=== PATIENT | female | born 1985 | race African-American/Black ===

== ENCOUNTER 2016-09-05 23:42 | Emergency (ER) | payer OTHER ==
[~2016-09-05] VITALS: Ht 177.8 cm; Wt 95.0 kg
[2016-09-05 23:50] VITALS: Ht 177.8 cm; Wt 95.0 kg
--- NOTE | 2016-09-06 00:55 | ERA ---
ER Documentation Chief Complaint Date/Time DATE: 09/06/16 TIME: 00:53 Chief Complaint LAPTOP FELL ON RT FOOT. SWOLLEN AND PAINFUL NOW HPI This is a 31-year-old female presenting with a chief complaint of right foot pain 1-2 hour status post trauma. Patient dropped a MacBook laptop on the top of her right foot. Patient denies any numbness, tingling, loss of sensation, loss of motion, recent illness, fever. Patient has no other complaints and describes no other associated manifestations. Has taken ibuprofen with minimal relief. ROS All systems reviewed and are negative except as per history of present illness. Medications Home Meds Active Scripts Ibuprofen* (Motrin*) 400 Mg Tab, 400 MG PO Q6, #30 TAB Prov:BARRY AL PA-C 09/06/16 Allergies Allergies: Coded Allergies: No Known Allergy (Unverified , 09/06/16) PMhx/Soc Medical and Surgical Hx: pt denies Surgical Hx History of Surgery: No Anesthesia Reaction: No Hx Neurological Disorder: No Hx Respiratory Disorders: Yes (bronchial spasms) Hx Cardiac Disorders: No Hx Psychiatric Problems: No Hx Miscellaneous Medical Probl: No Hx Alcohol Use: No Hx Substance Use: No Hx Tobacco Use: No Smoking Status: Never smoker Physical Exam Vitals Vital Signs Date Time Temp Pulse Resp B/P Pulse Ox O2 Delivery O2 Flow Rate FiO2 09/05/16 23:50 98.7 82 18 125/68 99 Physical Exam Const: Well-appearing 31-year-old female sitting in the bed on initial presentation Head: Atraumatic Eyes: Normal Conjunctiva ENT: Normal External Ears, Nose and Mouth. Neck: Full range of motion..~ No meningismus. Resp: Clear to auscultation bilaterally Cardio: Regular rate and rhythm, no murmurs Abd: Soft, non tender, non distended. Normal bowel sounds Skin: As noted in extremity examination. No petechiae or rashes Back: No midline or flank tenderness Ext: Mild hematoma overlying the second and third metatarsals of the right foot. Tenderness to palpation over the affected area. No cyanosis, or edema. Full range of motion of the toes. Full range of motion of the knees. Neur: Awake and alert Psych: Normal Mood and Affect Results 24 hrs Current Medications Medications (Trade) Dose Ordered Sig/John Route PRN Reason Start Time Stop Time Status Last Admin Dose Admin Acetaminophen/ Hydrocodone Bitart ([place] (5/325)) 1 tab ONCE ONCE PO 09/06/16 01:00 09/06/16 01:01 DC 09/06/16 01:02 Procedures/MDM 31-year-old female with a chief complaint of foot pain 2-3 hours status post MacBook versus top of the foot. 1 07/06 [place] p.o. was given in the ED with adequate relief of symptoms. An x-ray was taken and read by the radiologist given the following impression: No acute fracture. At this time a very low suspicion for bony involvement or neurovascular compromise. Outpatient management will include Rice therapy which has been discussed with the patient as well as ibuprofen for pain management. Patient does not need assistive device at this time. Patient will be discharged with discharge instructions and return precautions. I have spoke with the patient regarding their condition and future management. They have verbally responded that they understand their status and treatment plan. The patients vitals are stable, and their current condition is appropriate for discharge. The patient will be given discharge instructions with return precautions. Departure Diagnosis: Primary Impression: Injury of foot Qualified Code: S99.921A - Injury of foot, right, initial encounter Additional Impression: Foot pain Qualified Code: M79.671 - Right foot pain Condition: Stable Additional Instructions: Follow up with your PCP within the next 1-3 days for a more thorough evaluation and a possible referral to a specialist. Return the the emergency department immediately if symptoms worsen or change. If you have any questions regarding medications, ask your pharmacist or us before you leave. If any adverse reactions occur while taking your medications, discontinue the treatment and return to the emergency department immediately. Take your medications as directed, and complete the entire course of treatment. BARRY AL PA-C Sep 06, 2016 00:55
[2016-09-06] MEDS ORDERED: HYDROCODONE/APAP (5/325) TAB PO ONE (01:00)
--- NOTE | 2016-09-06 01:16 | RADRPT ---
PROCEDURE: X-ray right foot CLINICAL INDICATION: Right foot trauma with reference markers directed towards the dorsum of the f orefoot and to the bilateral forefoot. Pain in the second through fifth metatarsal regions. TECHNIQUE: 3 views right foot COMPARISON: None FINDINGS: No acute fracture or dislocation. Mild soft tissue swelling over the dorsum of the foot. Soft tiss ues unremarkable. IMPRESSION: No acute fracture. RPTAT: [facility] Physician Syeda Date Time Electronically viewed and signed by Darren Mary Physician on 09/06/2016 01:16 RS/
[2016-09-06] MEDS ORDERED: IBUP400T22 PO (01:21)
== END 2016-09-06 01:29 | disposition home or self-care (01) ==
LOC: FTE 23:42
DX: S90.31XA Contusion of right foot, initial encounter (principal); W20.8XXA Other cause of strike by thrown, projected or falling object, initial encounter; Y92.9 Unspecified place or not applicable
CPT/HCPCS: 73630; Z7610

== ENCOUNTER 2016-11-09 21:08 | Emergency (ER) | payer OTHER ==
[~2016-11-09] VITALS: Ht 167.6 cm; Wt 89.0 kg
[~2016-11-09 21:08] MED LIST: IBUP400T22 PO
[2016-11-09 21:14] VITALS: Ht 167.6 cm; Wt 89.0 kg
[2016-11-09] MEDS ORDERED: ALBUTEROL 0.083% (NEB) 2.5 MG/3 ML AMP HHN STA (22:53)
[2016-11-09] MEDS ORDERED: IPRATROPIUM (NEB) 0.5 MG/2.5 ML AMP HHN ONE (23:00)
--- NOTE | 2016-11-09 23:13 | RADRPT ---
PROCEDURE: XR Chest. CLINICAL INDICATION: Cough. TECHNIQUE: Single frontal view. COMPARISON: None. FINDINGS: The lungs are clear. The heart size is normal. There is no pleural effusion. There is no pneumothorax. IMPRESSION: 1. Normal chest radiograph. RPTAT: QQ .Sebastian Jacobson MD, Date Time Electronically viewed and signed by .Sebastian Jacobson MD, on 11/09/2016 23:13 .R/
[2016-11-09] MEDS ORDERED: BENZ200C43 PO (23:21)
[2016-11-09] MEDS ORDERED: MED4DP PO (23:21)
[2016-11-09] MEDS ORDERED: ALBU18HF INHALATION (23:21)
--- NOTE | 2016-11-10 03:46 | ERD ---
ER Documentation Chief Complaint Date/Time DATE: 11/10/16 TIME: 03:44 Chief Complaint cough x 3 days w/ sob, dry cough, chest congestion HPI This patient is a 31-year-old female presenting to the emergency department with complaints of nonproductive, intermittent, for the past 3 days. Associated symptoms include shortness of breath. The patient used an inhaler at home without relief of symptoms. She does have a history of bronchitis in the past. Symptoms are worsening now. She denies fevers, chills, or other symptoms. ROS All systems reviewed and are negative except as per history of present illness. Medications Home Meds Active Scripts Albuterol Sulfate* (Ventolin HFA*) 18 Gm Hfa.aer.ad, 2 PUFF INHALATION Q4H, #1 INHALER Prov:PACO NAVARRO PA-C 11/09/16 Benzonatate* (Benzonatate*) 200 Mg Capsule, 200 MG PO TID Y for COUGH, #20 CAP Prov:PACO NAVARRO PA-C 11/09/16 Methylprednisolone* (Medrol* DOSE PACK) 4 Mg/Dose-Pack Tab.ds.pk, 4 MG PO . DIRECTED, #1 PACKET Prov:PACO NAVARRO PA-C 11/09/16 Ibuprofen* (Motrin*) 400 Mg Tab, 400 MG PO Q6, #30 TAB Prov:BARRY AL PA-C 09/06/16 Allergies Allergies: Coded Allergies: No Known Allergy (Unverified , 09/06/16) PMhx/Soc History of Surgery: No Anesthesia Reaction: No Hx Neurological Disorder: No Hx Respiratory Disorders: Yes (bronchial spasms) Hx Cardiac Disorders: No Hx Psychiatric Problems: No Hx Miscellaneous Medical Probl: No Hx Alcohol Use: No Hx Substance Use: No Hx Tobacco Use: No Smoking Status: Never smoker Physical Exam Vitals Vital Signs Date Time Temp Pulse Resp B/P Pulse Ox O2 Delivery O2 Flow Rate FiO2 11/09/16 23:07 77 18 98 21 11/09/16 21:14 98.4 81 20 135/74 100 Physical Exam Const: Nontoxic, well-appearing female in no acute distress. Head: Atraumatic Eyes: Normal Conjunctiva ENT: Normal External Ears, Nose and Mouth. Neck: Full range of motion..~ No meningismus. Resp: Clear to auscultation bilaterally Cardio: Regular rate and rhythm, no murmurs Abd: Soft, non tender, non distended. Normal bowel sounds Skin: No petechiae or rashes Ext: No cyanosis, or edema Neur: Awake and alert Psych: Normal Mood and Affect Results 24 hrs Current Medications Medications (Trade) Dose Ordered Sig/John Route PRN Reason Start Time Stop Time Status Last Admin Dose Admin Albuterol (Proventil 0.083% ([place])) 5 mg ONCE STAT N 11/09/16 22:53 11/09/16 22:55 DC 11/09/16 23:06 Ipratropium [place] (Atrovent 0.02% (Neb)) 0.5 mg ONCE ONCE N 11/09/16 23:00 11/09/16 23:01 DC 11/09/16 23:07 Procedures/MDM 31-year-old female presenting to the emergency department with complaints of shortness of breath and cough. The patient does have history of asthma. There is no wheezing on physical examination, however the patient did desire breathing treatment here. She was given ipratropium and albuterol breathing treatment for approximately 45 minutes and was feeling much improved prior to discharge. Chest x-ray was negative for acute findings. The patient was stable for discharge with a prescription for Tessalon Perles, Medrol Dosepak, and albuterol. ER return precautions were discussed and close follow-up with the primary care physician was advised. PROCEDURE: XR Chest. CLINICAL INDICATION: Cough. TECHNIQUE: Single frontal view. COMPARISON: None. FINDINGS: The lungs are clear. The heart size is normal. There is no pleural effusion. There is no pneumothorax. IMPRESSION: 1. Normal chest radiograph. RPTAT: QQ .Sebastian Jacobson MD, MD Date Time Electronically viewed and signed by .Sebastian Jacobson MD, MD on 11/09/2016 23:13 Departure Diagnosis: Primary Impression: Bronchitis Condition: Fair Patient Instructions: Bronchitis, No Antibiotic (Adult) Referrals: COMM[facility] YOU HAVE RECEIVED A MEDICAL SCREENING EXAM AND THE RESULTS INDICATE THAT YOU DO NOT HAVE A CONDITION THAT REQUIRES URGENT TREATMENT IN THE EMERGENCY DEPARTMENT. FURTHER EVALUATION AND TREATMENT OF YOUR CONDITION CAN WAIT UNTIL YOU ARE SEEN IN YOUR DOCTORS OFFICE WITHIN THE NEXT 1-2 DAYS. IT IS YOUR RESPONSIBILITY TO MAKE AN APPOINTMENT FOR FOLOW-UP CARE. IF YOU HAVE A PRIMARY DOCTOR --you should call your primary doctor and schedule an appointment IF YOU DO NOT HAVE A PRIMARY DOCTOR YOU CAN CALL OUR PHYSICIAN REFERRAL HOTLINE AT IF YOU CAN NOT AFFORD TO SEE A PHYSICIAN YOU CAN CHOSE FROM THE FOLLOWING [facility] [id number] [facility] [address] [facility] [address] [facility] [address] [facility] [address] [facility] [facility] [address] Additional Instructions: Follow up with your PCP within the next 1-3 days for a repeat evaluation. If you require a referral to a specialist, your Primary Care Provider may be able to provide this for you. In most patient cases, a referral is not required. If you have further questions regarding this matter, please ask your Primary Care Provider. Return the the emergency department immediately if symptoms worsen or change. If you have any questions regarding medications, ask your pharmacist or us before you leave. If any adverse reactions, occur while taking your medications, discontinue the treatment and return to the emergency department immediately. If any new or worsening symptoms, uncontrolled fevers, or other unexplained symptoms occur, return to the emergency department immediately. Take your medications as directed, and complete the entire course of treatment. PACO NAVARRO PA-C Nov 10, 2016 03:45
== END 2016-11-09 23:50 | disposition home or self-care (01) ==
LOC: FTE 21:08
DX: J40 Bronchitis, not specified as acute or chronic (principal)
CPT/HCPCS: 71010; 94664; Z7502; Z7610